=== PATIENT | male | born 1960 | race African-American/Black ===

== ENCOUNTER 2020-02-29 10:55 | Inpatient (IN) | payer OTHER ==
[~2020-02-29] VITALS: Ht 182.9 cm; Wt 120.5 kg
[2020-02-29] MEDS ORDERED: METF-960 PO (11:08)
[2020-02-29] MEDS ORDERED: cholesterol med PO (11:08)
[2020-02-29] MEDS ORDERED: antihypertensive PO (11:08)
[2020-02-29] MEDS ORDERED: [UNRECOGNIZED DRUG - OTHER] PO (11:08)
[2020-02-29] MEDS ORDERED: 0.9% SODIUM CHLORIDE 10 ML SYRINGE IVP PRN (12:15)
[2020-02-29] MEDS ORDERED: ACETAMINOPHEN 500 MG TABLET PO ONE (12:15)
[2020-02-29] MEDS ORDERED: SODIUM CHLORIDE 0.9% 1,000 ML IV ONE (12:15)
[2020-02-29 12:54] LABS: BASOPHILS % (AUTO) 0.1 % (0.0-2.0); EOSINOPHILS % (AUTO) 0 % (1.0-6.0); HEMATOCRIT 44.3 % (41-53); HEMOGLOBIN 15.3 g/dL (13.5-17.5); LYMPHOCYTES # (AUTO) 1.6 K/uL (1.0-4.8); MEAN CORPUSCULAR HEMOGLOBIN 30.4 pg (26.0-34.0); MEAN CORPUSCULAR HGB CONC 34.5 G/dL (31.0-37.0); MEAN CORPUSCULAR VOLUME 88 fL (80-100); MONOCYTES # (AUTO) 1.2 K/uL (0.1-1.0); MONOCYTES % (AUTO) 5.9 % (2.0-9.0); NEUTROPHILS # (AUTO) 17.6 K/uL (1.8-7.7); PLATELET COUNT (AUTO) 181 K/uL (150-450); RED BLOOD CELL COUNT(AUTO) 5.01 MIL/uL (4.50-5.90); RED CELL DISTRIBUTION WIDTH 12.9 % (11.5-14.5)
[2020-02-29 13:11] LABS: CALCIUM, TOTAL 7.7 mg/dL (8.8-10.5); CREATININE 1.94 mg/dL (0.60-1.30); POTASSIUM 3.5 mmol/L (3.5-5.1)
[2020-02-29 13:18] LABS: BILIRUBIN,TOTAL 2.7 mg/dL (0.1-1.0); TOTAL PROTEIN, SERUM 6.7 g/dL (6.4-8.2)
[2020-02-29 13:21] LABS: INR 1.1 (0.9-1.1); PROTHROMBIN TIME 11.1 SEC (9.4-11.6)
[2020-02-29] MEDS ORDERED: AZITHROMYCIN 500 MG/NS 250 ML IV ONE (13:30)
[2020-02-29] MEDS ORDERED: CefTRIAXone 1 GM/DEXTROSE 50 ML IV ONE (13:30)
[2020-02-29] MEDS ORDERED: ONDANSETRON HCL 4 MG/2 ML VIAL IVP PRN (13:45)
[2020-02-29] MEDS ORDERED: ACETAMINOPHEN 325 MG TABLET PO PRN (13:45)
[2020-02-29 14:27] LABS: LACTIC ACID 1.9 mmol/L (0.4-2.0)
[2020-02-29 16:15] LABS: GLUCOSE,POINT OF CARE 244 MG/DL (70-110)
[2020-02-29 16:35] LABS: APPEARANCE,URINE CLOUDY (CLEAR); GLUCOSE, URINE (UA) 100 mg/dL (NEGATIVE); KETONES,URINE TRACE mg/dL (NEGATIVE); LEUKOCYTE ESTERASE ,URINE SMALL (NEGATIVE); NITRATE,URINE POSITIVE (NEGATIVE); OCCULT BLOOD,URINE LARGE (NEGATIVE); PROTEIN,URINE SEE CONFIRM (NEGATIVE)
[2020-02-29 16:51] LABS: BILIRUBIN,URINE PRELIM. POSITIVE (NEGATIVE)
[2020-02-29 17:03] LABS: SULFOSALICYLIC ACID,URINE 3+ (Negative)
[2020-02-29 17:04] LABS: BACTERIA,URINE Few /HPF (None Seen)
[2020-02-29 17:05] LABS: COARSE GRANULAR CASTS,URINE 0-2 /LPF (None Seen); FINE GRANULAR CASTS,URINE 0-2 /LPF (None Seen); YEAST,URINE Moderate /HPF (None Seen)
[2020-02-29 23:24] VITALS: BP 145/117
[2020-03-01] VITALS (7 sets, daily range): BP systolic 100–179; BP diastolic 61–116
[2020-03-01] MEDS: ACETAMINOPHEN 325 MG TABLET PO PRN ×4 (06:05→21:47)
[2020-03-01] MEDS ORDERED: DEXTROSE 50%-WATER 25 GM/50 ML SYRINGE IVP PRN (09:00)
[2020-03-01] MEDS ORDERED: SODIUM CHLORIDE 0.9% 250 ML IV ONE (10:16)
[2020-03-01] MEDS: CefTRIAXone 1 GM/DEXTROSE 50 ML IV SCH (11:25)
[2020-03-01] MEDS: INSULIN LISPRO 100 UNITS/ML SQ PRN ×3 (11:26→21:50)
[2020-03-01] MEDS ORDERED: ONDANSETRON HCL 4 MG/2 ML VIAL IVP PRN (11:30)
[2020-03-01] MEDS ORDERED: ALBUTEROL SULFATE 2.5 MG/0.5 ML NEB SOLUTION NEB PRN (11:30)
[2020-03-01] MEDS ORDERED: MORPHINE SULFATE 2 MG/ML SYRINGE IVP PRN (11:30)
[2020-03-01] MEDS ORDERED: IPRATROPIUM BROMIDE 0.5 MG/2.5 ML NEB SOLUTION NEB PRN (11:30)
[2020-03-01] MEDS ORDERED: ZOLPIDEM TARTRATE 5 MG TABLET PO PRN (11:30)
[2020-03-01] MEDS ORDERED: BISACODYL 10 MG RECTAL RECTAL SUPPOSITORY PR PRN (11:30)
[2020-03-01] MEDS ORDERED: MAGNESIUM HYDROXIDE SUSPENSION 30 ML UDCUP PO PRN (11:30)
[2020-03-01] MEDS ORDERED: HydrALAZINE HCL 20 MG/ML VIAL IVP PRN (12:45)
[2020-03-01] MEDS ORDERED: NIFEdipine 30 MG ER TABLET PO ONE (12:45)
[2020-03-01] MEDS: AZITHROMYCIN 500 MG/NS 250 ML IV SCH (13:02)
[2020-03-01 14:39] LABS: BASOPHILS % (AUTO) 0.4 % (0.0-2.0); EOSINOPHILS % (AUTO) 0 % (1.0-6.0); HEMOGLOBIN 14.7 g/dL (13.5-17.5); LYMPHOCYTES # (AUTO) 1.2 K/uL (1.0-4.8); LYMPHOCYTES % (AUTO) 8.3 % (22.0-44.0); MEAN CORPUSCULAR HEMOGLOBIN 30.2 pg (26.0-34.0); MEAN CORPUSCULAR HGB CONC 34.1 G/dL (31.0-37.0); MEAN CORPUSCULAR VOLUME 89 fL (80-100); MONOCYTES # (AUTO) 0.9 K/uL (0.1-1.0); MONOCYTES % (AUTO) 6.2 % (2.0-9.0); NEUTROPHILS # (AUTO) 12.7 K/uL (1.8-7.7); NEUTROPHILS % (AUTO) 85.1 % (40.0-70.0); PLATELET COUNT (AUTO) 193 K/uL (150-450); RED BLOOD CELL COUNT(AUTO) 4.86 MIL/uL (4.50-5.90); RED CELL DISTRIBUTION WIDTH 13.5 % (11.5-14.5)
[2020-03-01 14:58] LABS: HEMOGLOBIN A1C 7.8 % (3.8-5.6)
[2020-03-01 15:02] LABS: ALBUMIN 1.6 g/dL (3.4-5.0); BILIRUBIN,TOTAL 1.4 mg/dL (0.1-1.0); C-REACTIVE PROTEIN QUANT 22.11 mg/dL (0.00-0.30); CALCIUM, TOTAL 7.7 mg/dL (8.8-10.5); CREATININE 1.88 mg/dL (0.60-1.30); POTASSIUM 3.9 mmol/L (3.5-5.1); TOTAL PROTEIN, SERUM 6.5 g/dL (6.4-8.2)
[2020-03-01 15:59] LABS: GLUCOMETER DEV NAME(LOC) 5S.2A; GLUCOSE,POINT OF CARE 222 MG/DL (70-110)
[2020-03-01] MEDS: HEPARIN SODIUM,PORCINE 5,000 UNITS/ML VIAL SQ SCH ×2 (16:50→23:57)
[2020-03-01] MEDS: BENZONATATE 100 MG CAPSULE PO SCH ×2 (16:50→23:57)
[2020-03-01] MEDS: METOPROLOL TARTRATE 50 MG TABLET PO SCH (21:47)
[2020-03-01] MEDS: GuaiFENesin/CODEINE [SUGAR FREE] 200-20MG/10 ML SYRUP UDCUP PO PRN (21:47)
[2020-03-01] MEDS: DOCUSATE SODIUM 100 MG CAPSULE PO SCH (21:47)
[2020-03-02] MEDS: GuaiFENesin/CODEINE [SUGAR FREE] 200-20MG/10 ML SYRUP UDCUP PO PRN ×2 (04:14→16:29)
[2020-03-02] MEDS: ACETAMINOPHEN 325 MG TABLET PO PRN ×3 (04:19→15:44)
[2020-03-02 04:25] VITALS: BP 117/84
[2020-03-02] MEDS: INSULIN LISPRO 100 UNITS/ML SQ PRN ×3 (05:58→17:44)
[2020-03-02 06:43] LABS: GLUCOMETER DEV NAME(LOC) 5S.1; GLUCOSE,POINT OF CARE 147 MG/DL (70-110)
[2020-03-02 06:44] LABS: GLUCOMETER DEV NAME(LOC) 5S.1; GLUCOSE,POINT OF CARE 185 MG/DL (70-110)
[2020-03-02 07:09] LABS: BASOPHILS % (AUTO) 0.3 % (0.0-2.0); EOSINOPHILS % (AUTO) 0 % (1.0-6.0); HEMATOCRIT 42.7 % (41-53); HEMOGLOBIN 14.8 g/dL (13.5-17.5); LYMPHOCYTES # (AUTO) 0.7 K/uL (1.0-4.8); LYMPHOCYTES % (AUTO) 5.4 % (22.0-44.0); MEAN CORPUSCULAR HEMOGLOBIN 30.7 pg (26.0-34.0); MEAN CORPUSCULAR HGB CONC 34.7 G/dL (31.0-37.0); MEAN CORPUSCULAR VOLUME 89 fL (80-100); MONOCYTES # (AUTO) 0.7 K/uL (0.1-1.0); MONOCYTES % (AUTO) 5.3 % (2.0-9.0); NEUTROPHILS # (AUTO) 11.3 K/uL (1.8-7.7); PLATELET COUNT (AUTO) 212 K/uL (150-450); RED BLOOD CELL COUNT(AUTO) 4.82 MIL/uL (4.50-5.90); RED CELL DISTRIBUTION WIDTH 13.3 % (11.5-14.5)
[2020-03-02 07:47] LABS: GLUCOMETER DEV NAME(LOC) 5N.3; GLUCOSE,POINT OF CARE 161 MG/DL (70-110)
[2020-03-02 07:55] LABS: ALBUMIN 1.6 g/dL (3.4-5.0); BILIRUBIN,TOTAL 1.4 mg/dL (0.1-1.0); C-REACTIVE PROTEIN QUANT 22.16 mg/dL (0.00-0.30); CALCIUM, TOTAL 7.8 mg/dL (8.8-10.5); CREATININE 2.03 mg/dL (0.60-1.30); POTASSIUM 3.5 mmol/L (3.5-5.1); TOTAL PROTEIN, SERUM 6.6 g/dL (6.4-8.2)
[2020-03-02] MEDS: DOCUSATE SODIUM 100 MG CAPSULE PO SCH ×2 (08:27→22:09)
[2020-03-02] MEDS: BENZONATATE 100 MG CAPSULE PO SCH ×3 (08:27→22:10)
[2020-03-02] MEDS: METOPROLOL TARTRATE 50 MG TABLET PO SCH ×2 (08:27→22:09)
[2020-03-02] MEDS: HEPARIN SODIUM,PORCINE 5,000 UNITS/ML VIAL SQ SCH ×3 (08:27→22:10)
[2020-03-02] MEDS: NIFEdipine 30 MG ER TABLET PO SCH ×2 (08:28→08:39)
[2020-03-02 08:37] VITALS: BP 130/76
[2020-03-02] MEDS ORDERED: DENTURE ADHESIVE 68 GM CREAM DT PRN (10:00)
[2020-03-02 12:00] VITALS: BP 113/77
[2020-03-02 12:23] LABS: GLUCOMETER DEV NAME(LOC) 5N.3; GLUCOSE,POINT OF CARE 169 MG/DL (70-110)
[2020-03-02] MEDS: CefTRIAXone 1 GM/DEXTROSE 50 ML IV SCH (14:09)
[2020-03-02] MEDS: AZITHROMYCIN 500 MG/NS 250 ML IV SCH (16:29)
[2020-03-02 17:19] VITALS: BP 148/88
[2020-03-02 17:58] LABS: GLUCOMETER DEV NAME(LOC) 5N.3; GLUCOSE,POINT OF CARE 231 MG/DL (70-110)
[2020-03-02 19:45] VITALS: BP 156/91
[2020-03-03] VITALS: BP 129/73
[2020-03-03 03:45] VITALS: BP 121/51
[2020-03-03 04:05] LABS: HIV 1-2 SCREEN 4TH GEN W/RFLX Non Reactive (Non Reactive)
[2020-03-03 06:53] LABS: BASOPHILS % (AUTO) 0.1 % (0.0-2.0); EOSINOPHILS % (AUTO) 0 % (1.0-6.0); HEMATOCRIT 40.5 % (41-53); HEMOGLOBIN 13.8 g/dL (13.5-17.5); LYMPHOCYTES # (AUTO) 0.7 K/uL (1.0-4.8); LYMPHOCYTES % (AUTO) 5.7 % (22.0-44.0); MEAN CORPUSCULAR HEMOGLOBIN 30.1 pg (26.0-34.0); MEAN CORPUSCULAR HGB CONC 34.1 G/dL (31.0-37.0); MEAN CORPUSCULAR VOLUME 88 fL (80-100); MONOCYTES # (AUTO) 0.8 K/uL (0.1-1.0); MONOCYTES % (AUTO) 6.2 % (2.0-9.0); NEUTROPHILS # (AUTO) 11.1 K/uL (1.8-7.7); PLATELET COUNT (AUTO) 240 K/uL (150-450); RED CELL DISTRIBUTION WIDTH 13.3 % (11.5-14.5)
[2020-03-03 07:13] LABS: GLUCOMETER DEV NAME(LOC) 5N.3; GLUCOSE,POINT OF CARE 165 MG/DL (70-110)
[2020-03-03 07:23] LABS: GLUCOMETER DEV NAME(LOC) 5S.2A; GLUCOSE,POINT OF CARE 184 MG/DL (70-110)
[2020-03-03 08:05] LABS: ALBUMIN 1.5 g/dL (3.4-5.0); BILIRUBIN,TOTAL 1.1 mg/dL (0.1-1.0); C-REACTIVE PROTEIN QUANT 20.64 mg/dL (0.00-0.30); CALCIUM, TOTAL 7.8 mg/dL (8.8-10.5); CREATININE 2.28 mg/dL (0.60-1.30); POTASSIUM 3.5 mmol/L (3.5-5.1); TOTAL PROTEIN, SERUM 6.3 g/dL (6.4-8.2)
[2020-03-03] MEDS: BENZONATATE 100 MG CAPSULE PO SCH ×3 (08:17→23:05)
[2020-03-03] MEDS: METOPROLOL TARTRATE 50 MG TABLET PO SCH ×2 (08:17→23:01)
[2020-03-03] MEDS: HEPARIN SODIUM,PORCINE 5,000 UNITS/ML VIAL SQ SCH ×3 (08:17→23:01)
[2020-03-03] MEDS: DOCUSATE SODIUM 100 MG CAPSULE PO SCH ×2 (08:17→23:01)
[2020-03-03 08:26] VITALS: BP 136/74
[2020-03-03] MEDS: ACETAMINOPHEN 325 MG TABLET PO PRN ×2 (08:35→15:43)
[2020-03-03] MEDS: NIFEdipine 30 MG ER TABLET PO SCH (08:35)
[2020-03-03 11:16] VITALS: BP 110/84
[2020-03-03] MEDS: INSULIN LISPRO 100 UNITS/ML SQ PRN ×2 (11:19→17:21)
[2020-03-03] MEDS: GuaiFENesin/CODEINE [SUGAR FREE] 200-20MG/10 ML SYRUP UDCUP PO PRN (11:51)
[2020-03-03] MEDS: CefTRIAXone 1 GM/DEXTROSE 50 ML IV SCH (14:30)
[2020-03-03] MEDS: AZITHROMYCIN 500 MG/NS 250 ML IV SCH (15:15)
[2020-03-03 15:47] VITALS: BP 151/90
[2020-03-03 16:43] LABS: GLUCOMETER DEV NAME(LOC) 5S.2A; GLUCOSE,POINT OF CARE 153 MG/DL (70-110)
[2020-03-03 21:12] VITALS: BP 106/53
[2020-03-04 00:46] VITALS: BP 107/50
[2020-03-04 04:12] VITALS: BP 128/82
[2020-03-04] MEDS: INSULIN LISPRO 100 UNITS/ML SQ PRN ×4 (06:13→20:59)
[2020-03-04 06:48] LABS: GLUCOMETER DEV NAME(LOC) 5N.3; GLUCOSE,POINT OF CARE 187 MG/DL (70-110)
[2020-03-04 06:48] LABS: GLUCOMETER DEV NAME(LOC) 5N.3; GLUCOSE,POINT OF CARE 219 MG/DL (70-110)
[2020-03-04 07:48] LABS: BASOPHILS % (AUTO) 0.3 % (0.0-2.0); EOSINOPHILS % (AUTO) 0.1 % (1.0-6.0); HEMATOCRIT 40.3 % (41-53); HEMOGLOBIN 13.8 g/dL (13.5-17.5); LYMPHOCYTES % (AUTO) 11.7 % (22.0-44.0); MEAN CORPUSCULAR HEMOGLOBIN 30.4 pg (26.0-34.0); MEAN CORPUSCULAR HGB CONC 34.4 G/dL (31.0-37.0); MEAN CORPUSCULAR VOLUME 88 fL (80-100); MONOCYTES # (AUTO) 0.9 K/uL (0.1-1.0); MONOCYTES % (AUTO) 10.9 % (2.0-9.0); NEUTROPHILS # (AUTO) 6.6 K/uL (1.8-7.7); PLATELET COUNT (AUTO) 272 K/uL (150-450); RED BLOOD CELL COUNT(AUTO) 4.56 MIL/uL (4.50-5.90); RED CELL DISTRIBUTION WIDTH 13.5 % (11.5-14.5)
[2020-03-04 08:40] LABS: ALBUMIN 1.4 g/dL (3.4-5.0); BILIRUBIN,TOTAL 0.8 mg/dL (0.1-1.0); C-REACTIVE PROTEIN QUANT 16.92 mg/dL (0.00-0.30); CALCIUM, TOTAL 7.6 mg/dL (8.8-10.5); CREATININE 2.29 mg/dL (0.60-1.30); POTASSIUM 3.2 mmol/L (3.5-5.1); TOTAL PROTEIN, SERUM 6.3 g/dL (6.4-8.2)
[2020-03-04] MEDS: METOPROLOL TARTRATE 50 MG TABLET PO SCH ×2 (10:15→20:58)
[2020-03-04] MEDS: BENZONATATE 100 MG CAPSULE PO SCH ×2 (10:15→17:06)
[2020-03-04] MEDS: HEPARIN SODIUM,PORCINE 5,000 UNITS/ML VIAL SQ SCH ×2 (10:15→17:06)
[2020-03-04] MEDS: DOCUSATE SODIUM 100 MG CAPSULE PO SCH ×3 (10:15→21:00)
[2020-03-04 10:16] VITALS: BP 131/71
[2020-03-04] MEDS: NIFEdipine 30 MG ER TABLET PO SCH (10:16)
[2020-03-04 11:19] VITALS: BP 118/76
[2020-03-04] MEDS ORDERED: POTASSIUM CHLORIDE 20 MEQ ER TABLET PO ONE (11:30)
[2020-03-04] MEDS: CefTRIAXone 1 GM/DEXTROSE 50 ML IV SCH (15:16)
[2020-03-04 15:26] VITALS: BP 122/75
[2020-03-04 16:00] LABS: CREATININE,URINE RANDOM 97.2 mg/dL (30.0-125.0)
[2020-03-04] MEDS: AZITHROMYCIN 500 MG/NS 250 ML IV SCH (17:06)
[2020-03-04 17:21] LABS: GLUCOMETER DEV NAME(LOC) 5N.3; GLUCOSE,POINT OF CARE 162 MG/DL (70-110)
[2020-03-04 17:47] LABS: GLUCOMETER DEV NAME(LOC) 5S.2A; GLUCOSE,POINT OF CARE 135 MG/DL (70-110)
[2020-03-04 17:47] LABS: GLUCOMETER DEV NAME(LOC) 5S.2A; GLUCOSE,POINT OF CARE 156 MG/DL (70-110)
[2020-03-04 20:07] VITALS: BP 114/48
[2020-03-04 21:43] LABS: QUANTIFERON+, Nil Value 0.31 IU/mL; QUANTIFERON+,Mitogen Value 0.93 IU/mL; QUANTIFERON+,TB1 Antigen Value 0.33 IU/mL; QUANTIFERON, TB GOLD PLUS Negative (Negative)
[2020-03-05] MEDS: BENZONATATE 100 MG CAPSULE PO SCH ×3 (00:06→15:32)
[2020-03-05] MEDS: HEPARIN SODIUM,PORCINE 5,000 UNITS/ML VIAL SQ SCH ×3 (00:06→15:32)
[2020-03-05 00:12] VITALS: BP 113/77
[2020-03-05 04:01] LABS: GLUCOMETER DEV NAME(LOC) 5S.2A; GLUCOSE,POINT OF CARE 198 MG/DL (70-110)
[2020-03-05] MEDS: INSULIN LISPRO 100 UNITS/ML SQ PRN ×4 (05:20→20:36)
[2020-03-05 05:41] LABS: GLUCOMETER DEV NAME(LOC) 5S.2A; GLUCOSE,POINT OF CARE 143 MG/DL (70-110)
[2020-03-05 05:53] VITALS: BP 129/85
[2020-03-05 06:56] LABS: BASOPHILS % (AUTO) 0.4 % (0.0-2.0); EOSINOPHILS % (AUTO) 1.9 % (1.0-6.0); HEMOGLOBIN 13.3 g/dL (13.5-17.5); LYMPHOCYTES # (AUTO) 1.4 K/uL (1.0-4.8); LYMPHOCYTES % (AUTO) 19.4 % (22.0-44.0); MEAN CORPUSCULAR HGB CONC 34.1 G/dL (31.0-37.0); MEAN CORPUSCULAR VOLUME 88 fL (80-100); MONOCYTES # (AUTO) 0.8 K/uL (0.1-1.0); MONOCYTES % (AUTO) 10.9 % (2.0-9.0); NEUTROPHILS # (AUTO) 4.7 K/uL (1.8-7.7); NEUTROPHILS % (AUTO) 67.4 % (40.0-70.0); PLATELET COUNT (AUTO) 326 K/uL (150-450); RED BLOOD CELL COUNT(AUTO) 4.43 MIL/uL (4.50-5.90); RED CELL DISTRIBUTION WIDTH 13.3 % (11.5-14.5)
[2020-03-05 07:54] VITALS: BP 118/68
[2020-03-05 08:00] LABS: ALBUMIN 1.3 g/dL (3.4-5.0); BILIRUBIN,TOTAL 0.5 mg/dL (0.1-1.0); C-REACTIVE PROTEIN QUANT 10.45 mg/dL (0.00-0.30); CALCIUM, TOTAL 7.7 mg/dL (8.8-10.5); CREATININE 1.75 mg/dL (0.60-1.30); POTASSIUM 3.2 mmol/L (3.5-5.1); THYROID STIMULATING HORMONE 2.1 uIU/mL (0.36-3.74); TOTAL PROTEIN, SERUM 6.1 g/dL (6.4-8.2)
[2020-03-05] MEDS: DOCUSATE SODIUM 100 MG CAPSULE PO SCH ×2 (08:24→20:20)
[2020-03-05] MEDS: NIFEdipine 30 MG ER TABLET PO SCH (08:24)
[2020-03-05] MEDS: METOPROLOL TARTRATE 50 MG TABLET PO SCH ×2 (08:24→20:20)
[2020-03-05 11:38] VITALS: BP 118/75
[2020-03-05] MEDS: CefTRIAXone 1 GM/DEXTROSE 50 ML IV SCH (14:22)
[2020-03-05 15:10] VITALS: BP 114/70
[2020-03-05] MEDS: AZITHROMYCIN 500 MG/NS 250 ML IV SCH (15:25)
[2020-03-05] MEDS: GuaiFENesin/CODEINE [SUGAR FREE] 200-20MG/10 ML SYRUP UDCUP PO PRN (15:32)
[2020-03-05] MEDS: HYDROCODONE/ACETAMINOPHEN 5-325 MG TABLET PO PRN (15:32)
[2020-03-05 20:30] VITALS: BP 108/81
[2020-03-05 21:29] LABS: GLUCOMETER DEV NAME(LOC) 5S.2A; GLUCOSE,POINT OF CARE 155 MG/DL (70-110)
[2020-03-06] VITALS (7 sets, daily range): BP systolic 117–147; BP diastolic 69–87
[2020-03-06] MEDS: BENZONATATE 100 MG CAPSULE PO SCH ×3 (00:45→17:52)
[2020-03-06] MEDS: HEPARIN SODIUM,PORCINE 5,000 UNITS/ML VIAL SQ SCH ×3 (00:45→17:51)
[2020-03-06] MEDS: INSULIN LISPRO 100 UNITS/ML SQ PRN ×3 (06:52→20:40)
[2020-03-06 07:06] LABS: BASOPHILS % (AUTO) 0.9 % (0.0-2.0); EOSINOPHILS % (AUTO) 4.1 % (1.0-6.0); HEMATOCRIT 39.4 % (41-53); HEMOGLOBIN 13.5 g/dL (13.5-17.5); LYMPHOCYTES # (AUTO) 1.4 K/uL (1.0-4.8); LYMPHOCYTES % (AUTO) 21.6 % (22.0-44.0); MEAN CORPUSCULAR HEMOGLOBIN 30.2 pg (26.0-34.0); MEAN CORPUSCULAR HGB CONC 34.3 G/dL (31.0-37.0); MEAN CORPUSCULAR VOLUME 88 fL (80-100); MONOCYTES # (AUTO) 0.8 K/uL (0.1-1.0); MONOCYTES % (AUTO) 12.2 % (2.0-9.0); NEUTROPHILS # (AUTO) 3.8 K/uL (1.8-7.7); NEUTROPHILS % (AUTO) 61.2 % (40.0-70.0); PLATELET COUNT (AUTO) 388 K/uL (150-450); RED BLOOD CELL COUNT(AUTO) 4.47 MIL/uL (4.50-5.90); RED CELL DISTRIBUTION WIDTH 13.3 % (11.5-14.5)
[2020-03-06 07:59] LABS: ALBUMIN 1.4 g/dL (3.4-5.0); BILIRUBIN,TOTAL 0.5 mg/dL (0.1-1.0); CALCIUM, TOTAL 7.8 mg/dL (8.8-10.5); CREATININE 1.62 mg/dL (0.60-1.30); MAGNESIUM 2.6 mg/dL (1.80-2.40); PHOSPHORUS 3.9 mg/dL (2.5-4.9); POTASSIUM 3.4 mmol/L (3.5-5.1); TOTAL PROTEIN, SERUM 6.2 g/dL (6.4-8.2)
[2020-03-06] MEDS: DOCUSATE SODIUM 100 MG CAPSULE PO SCH ×2 (09:58→20:18)
[2020-03-06] MEDS: METOPROLOL TARTRATE 50 MG TABLET PO SCH ×2 (09:59→20:19)
[2020-03-06] MEDS: NIFEdipine 30 MG ER TABLET PO SCH (09:59)
[2020-03-06] MEDS: GuaiFENesin/CODEINE [SUGAR FREE] 200-20MG/10 ML SYRUP UDCUP PO PRN (11:50)
[2020-03-06] MEDS ORDERED: POTASSIUM CHLORIDE 20 MEQ ER TABLET PO ONE (12:00)
[2020-03-06] MEDS ORDERED: SODIUM CHLORIDE 0.9% 250 ML IV ONE (14:35)
[2020-03-06] MEDS: CefTRIAXone 1 GM/DEXTROSE 50 ML IV SCH (14:41)
[2020-03-06] MEDS: FUROSEMIDE 40 MG TABLET PO SCH (14:41)
[2020-03-06] MEDS: HYDROCODONE/ACETAMINOPHEN 5-325 MG TABLET PO PRN (14:59)
[2020-03-06] MEDS: AZITHROMYCIN 500 MG/NS 250 ML IV SCH (17:50)
[2020-03-06 21:45] LABS: GLUCOMETER DEV NAME(LOC) 5N.1; GLUCOSE,POINT OF CARE 160 MG/DL (70-110)
[2020-03-06 21:46] LABS: GLUCOMETER DEV NAME(LOC) 5N.1; GLUCOSE,POINT OF CARE 160 MG/DL (70-110)
[2020-03-06 21:46] LABS: GLUCOMETER DEV NAME(LOC) 5N.1; GLUCOSE,POINT OF CARE 148 MG/DL (70-110)
[2020-03-06 21:46] LABS: GLUCOMETER DEV NAME(LOC) 5N.1; GLUCOSE,POINT OF CARE 139 MG/DL (70-110)
[2020-03-06 21:47] LABS: GLUCOMETER DEV NAME(LOC) 5S.2A; GLUCOSE,POINT OF CARE 169 MG/DL (70-110)
[2020-03-06 21:47] LABS: GLUCOMETER DEV NAME(LOC) 5N.1; GLUCOSE,POINT OF CARE 116 MG/DL (70-110)
[2020-03-07] VITALS (7 sets, daily range): BP systolic 128–157; BP diastolic 71–92
[2020-03-07] MEDS: BENZONATATE 100 MG CAPSULE PO SCH ×4 (00:48→23:43)
[2020-03-07] MEDS: HEPARIN SODIUM,PORCINE 5,000 UNITS/ML VIAL SQ SCH ×4 (00:48→23:42)
[2020-03-07] MEDS: INSULIN LISPRO 100 UNITS/ML SQ PRN ×3 (06:49→22:29)
[2020-03-07 08:10] LABS: GLUCOMETER DEV NAME(LOC) 5N.3; GLUCOSE,POINT OF CARE 129 MG/DL (70-110)
[2020-03-07 08:22] LABS: CALCIUM, TOTAL 7.7 mg/dL (8.8-10.5); CREATININE 1.52 mg/dL (0.60-1.30); POTASSIUM 4.4 mmol/L (3.5-5.1)
[2020-03-07] MEDS: DOCUSATE SODIUM 100 MG CAPSULE PO SCH ×2 (09:08→22:21)
[2020-03-07] MEDS: METOPROLOL TARTRATE 50 MG TABLET PO SCH ×2 (09:08→22:21)
[2020-03-07] MEDS: FUROSEMIDE 40 MG TABLET PO SCH (09:08)
[2020-03-07] MEDS: NIFEdipine 30 MG ER TABLET PO SCH (09:11)
[2020-03-07] MEDS: GuaiFENesin/CODEINE [SUGAR FREE] 200-20MG/10 ML SYRUP UDCUP PO PRN (09:13)
[2020-03-07] MEDS: CefTRIAXone 1 GM/DEXTROSE 50 ML IV SCH (14:39)
[2020-03-07 20:11] LABS: GLUCOMETER DEV NAME(LOC) 6N.1; GLUCOSE,POINT OF CARE 95 MG/DL (70-110)
[2020-03-07 20:28] LABS: GLUCOMETER DEV NAME(LOC) 5N.1; GLUCOSE,POINT OF CARE 205 MG/DL (70-110)
[2020-03-07 20:28] LABS: ORGANISM ID Not indicated.; S PNEUMO SOURCE Urine; STREP PNEUMONIAE AG URINE Negative (Negative); STREP.PNEUMO BODY FLUID CULT. Not indicated.
[2020-03-07] MEDS ORDERED: HydrALAZINE HCL 20 MG/ML VIAL IVP PRN (21:30)
[2020-03-07 23:41] LABS: GLUCOMETER DEV NAME(LOC) 6N.1; GLUCOSE,POINT OF CARE 166 MG/DL (70-110)
[2020-03-08] MEDS: INSULIN LISPRO 100 UNITS/ML SQ PRN ×2 (05:36→12:47)
[2020-03-08 05:51] VITALS: BP 147/73
[2020-03-08 06:04] LABS: GLUCOMETER DEV NAME(LOC) 6N.1; GLUCOSE,POINT OF CARE 153 MG/DL (70-110)
[2020-03-08 07:42] VITALS: BP 137/80
[2020-03-08] MEDS: NIFEdipine 30 MG ER TABLET PO SCH (08:30)
[2020-03-08] MEDS: METOPROLOL TARTRATE 50 MG TABLET PO SCH (08:30)
[2020-03-08] MEDS: FUROSEMIDE 40 MG TABLET PO SCH (08:32)
[2020-03-08] MEDS: DOCUSATE SODIUM 100 MG CAPSULE PO SCH (08:32)
[2020-03-08] MEDS: BENZONATATE 100 MG CAPSULE PO SCH ×2 (08:32→15:00)
[2020-03-08] MEDS: HEPARIN SODIUM,PORCINE 5,000 UNITS/ML VIAL SQ SCH ×2 (08:33→15:00)
[2020-03-08 11:14] VITALS: BP 134/78
[2020-03-08] MEDS: CefTRIAXone 1 GM/DEXTROSE 50 ML IV SCH (14:51)
[2020-03-08] MEDS: GuaiFENesin/CODEINE [SUGAR FREE] 200-20MG/10 ML SYRUP UDCUP PO PRN (14:52)
[2020-03-08] MEDS ORDERED: FURO40 PO (15:05)
[2020-03-08] MEDS ORDERED: GLYB2.5 PO (15:05)
[2020-03-08] MEDS ORDERED: METO50 PO (15:05)
[2020-03-08] MEDS ORDERED: LEVO-72 PO (15:05)
[2020-03-08] MEDS ORDERED: BENZ100C68 PO (15:05)
[2020-03-08] MEDS ORDERED: NIFE-40 PO (15:05)
[2020-03-08] MEDS ORDERED: [UNRECOGNIZED DRUG - OTHER] PO (15:05)
[2020-03-08] MEDS ORDERED: GUAIFENESIN PO (15:05)
[2020-03-08] MEDS ORDERED: POTA8TAB71 PO (15:08)
[2020-03-08 15:14] VITALS: BP 151/84
[2020-03-08] MEDS ORDERED: PNEUMOCOCCAL VACCINE POLYVALENT 0.5 ML VIAL [PPSV23] IM ONE (17:15)
[2020-03-08 18:01] LABS: GLUCOMETER DEV NAME(LOC) 6N.1; GLUCOSE,POINT OF CARE 151 MG/DL (70-110)
== END 2020-03-08 16:40 | disposition home or self-care (01) | DRG 720 ==
LOC: EMS 11:06 → 5N 18:32 → 4E 03-07 17:38
PROVIDERS: ADMIT Hospitalist; ATTEND Hospitalist
DX: A41.9 Sepsis, unspecified organism (principal); J96.01 Acute respiratory failure with hypoxia; E43 Unspecified severe protein-calorie malnutrition; J15.9 Unspecified bacterial pneumonia; E11.22 Type 2 diabetes mellitus with diabetic chronic kidney disease; N17.9 Acute kidney failure, unspecified; E11.9 Type 2 diabetes mellitus without complications; E78.5 Hyperlipidemia, unspecified; E11.65 Type 2 diabetes mellitus with hyperglycemia; E87.1 Hypo-osmolality and hyponatremia; E87.6 Hypokalemia; I12.9 Hypertensive chronic kidney disease with stage 1 through stage 4 chronic kidney disease, or unspecified chronic kidney disease; R31.29 Other microscopic hematuria; R65.20 Severe sepsis without septic shock; B19.20 Unspecified viral hepatitis C without hepatic coma; Z96.659 Presence of unspecified artificial knee joint; R04.2 Hemoptysis; F17.210 Nicotine dependence, cigarettes, uncomplicated; Z20.818 Contact with and (suspected) exposure to other bacterial communicable diseases; N18.3 Chronic kidney disease, stage 3 (moderate); Z68.36 Body mass index [BMI] 36.0-36.9, adult; Z79.84 Long term (current) use of oral hypoglycemic drugs; Z79.899 Other long term (current) drug therapy
CPT/HCPCS: 71250; 76770; 82043; 82533; 82570; 82728; 83036; 83520; 83605; 83615; 83735; 83930; 83935; 84100; 84145; 84156; 84300; 84443; 84540; 85379; 86038; 86140; 86160; 86225; 86256; 86480; 86592; 86635; 86803; 87015; 87040; 87070; 87205; 87206; 87340; 87389; 87449; 87556; 87798; 87899; 93005; 99291; G0378; J0360; J0456; J0696; J1644; J7030; J7050; 36415-L1; 36415-TC; 71045-TC; 87635; U0003-CS